=== PATIENT | male | born 1945 | race Caucasian/White ===

== ENCOUNTER → 2023-06-10 12:02 | Outpatient (CLI) | payer MEDICARE, SELFPAY ==
[2023-06-10 14:27] LABS: Prostate Specific Antigen 3.03 ng/mL (0.10-4.00)
== END ==
LOC: LAB 12:04
PROVIDERS: PCP Family Medicine; Referring Provider Family Medicine; Visit Provider Family Medicine
DX: R35.1 Nocturia (principal)
CPT/HCPCS: 36415; 84153

== ENCOUNTER 2023-07-18 09:53 | Emergency (ER) | payer MEDICARE, SELFPAY ==
[2023-07-18] VITALS (7 sets, daily range): BP systolic 134–177; BP diastolic 63–84; PULSE 63–82; RESP 14–17; TEMP 36.6; O2SAT 94–98; BMI 28.8
--- NOTE | 2023-07-18 10:02 | DI.RAD.S_ITS ---
PROCEDURE: XR CHEST 1V INDICATIONS: SOB TECHNIQUE: One view of the chest was acquired. COMPARISON: None. FINDINGS: Surgical changes and devices: None. Lungs and pleura: Lungs are clear. No pleural effusions or pneumothorax. Mediastinum: Mediastinal contours appear normal. Heart size is normal. There is marked elevation of right hemidiaphragm. Bones and chest wall: No suspicious bony lesions. Overlying soft tissues appear unremarkable. IMPRESSION: No acute cardiopulmonary abnormality is seen. Dictated by: Stephania Winters M.D. on 07/18/2023 at 11:16 Approved by: Stephania Winters M.D. on 07/18/2023 at 11:16
--- NOTE | 2023-07-18 10:03 | DI.US.S_ITS ---
PROCEDURE: US PERIPH VENOUS LOW EXTREM LT INDICATIONS: eval for DVT TECHNIQUE: Real-time imaging, as well as color and pulse Doppler interrogation, were performed of the lower extremity deep veins from the inguinal ligament to the popliteal fossa, with documentation of the visualized calf veins. COMPARISON: None. FINDINGS: The common femoral, femoral, popliteal, and the visualized calf veins are normally compressible, and free of intraluminal thrombus. Color and pulse Doppler demonstrate normal phasic intraluminal flow. There is normal augmentation response to distal compression maneuver. IMPRESSION: No findings of lower extremity deep venous thrombosis. Dictated by: Stephania Winters M.D. on 07/18/2023 at 11:03 Approved by: Stephania Winters M.D. on 07/18/2023 at 11:03
--- NOTE | 2023-07-18 10:06 | ED_ITS ---
HPI - General Adult General Chief complaint: Shortness of Breath/Dyspnea Stated complaint: blood clot in leg, SOB Time Seen by Provider: 07/18/23 09:56 Source: patient Mode of arrival: Ambulatory History of Present Illness HPI narrative: Patient is a 78-year-old male who is here for evaluation of swelling to his left lower extremity and concern for a DVT. He reports that he has had swelling to his left lower extremity for the past 5 days. No trauma. He has a known Dye's cyst. He denies chest pain. He states that he has been having some shortness of breath with exertion. 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 He has not on any anticoagulation. No abdominal pain. Related Data Home Medications Medication Instructions Recorded Confirmed amlodipine 10 mg tablet 10 mg PO DAILY 06/08/23 07/17/23 losartan 100 mg tablet 100 mg PO DAILY 06/08/23 07/17/23 naproxen sodium 220 mg capsule 220 mg PO BID PRN 06/08/23 07/17/23 propranolol 40 mg tablet 40 mg PO DAILY 06/08/23 07/17/23 Previous Rx's Medication Instructions Recorded tamsulosin 0.4 mg capsule 0.4 mg PO BEDTIME #30 caps 06/22/23 tamsulosin 0.4 mg capsule 0.8 mg (2 x 0.4 mg) PO BEDTIME #60 07/17/23 caps furosemide 20 mg tablet (Lasix) 20 mg PO DAILY #3 tabs 07/18/23 Allergies Allergy/AdvReac Type Severity Reaction Status Date / Time No Known Drug Allergies Allergy Verified 07/18/23 10:00 Review of Systems Review of Systems Narrative: See HPI Patient History Medical History BPH (benign prostatic hyperplasia) Vision disorder Hearing loss Kidney stones Skin cancer Rosacea Plantar warts Allergies TIA (transient ischemic attack) Stroke Mumps Measles Chicken pox Osteoarthritis of right hip Aortic regurgitation Hypertension Nocturia Erectile dysfunction Neurocognitive disorder Hx of adenomatous polyp of colon Surgical History (Updated 07/01/23 @ 20:30 by Amita Min) Anesthesia History of tonsillectomy History of cholecystectomy Family History (Updated 07/01/23 @ 20:31 by Amita Min) Father Mental health problem Mother Cancer Social History Smoking Status: Never smoker Smoking Status: Never smoker alcohol intake frequency: holidays/special occasions only Substance Use Type: does not use Exam Initial Vital Signs Initial Vital Signs: Vital Signs Temperature 97.8 F 07/18/23 09:54 Pulse Rate 82 07/18/23 09:54 Respiratory Rate 14 07/18/23 09:54 Blood Pressure 176/84 H 07/18/23 09:54 Pulse Oximetry 97 07/18/23 09:54 Oxygen Delivery Method Room Air 07/18/23 09:54 Const General: cooperative, comfortable and No ill appearing HENCT Head: normal to inspection and normocephalic Resp Effort & Inspection: normal respiratory effort Auscultation: clear to auscultation bilaterally Cardio Rate: regular rate Rhythm: regular rhythm GI Inspection: normal to inspection and non-distended Skin General: no rashes or lesions noted Neuro General: patient alert, patient awake and moves all extremities Extrem Other: Circumferential edema left lower extremity from his toes to his hip. Scores Wells' Criteria for DVT Active Cancer (Treatment within 6 months): No Bedridden recently >3 days or major surgery within 4 weeks: No Calf Swelling >3cm compared to other leg: Yes Collateral (nonvericose) superficial veins present: No Entire leg swollen: Yes Localized tenderness along the deep vein system: Yes Pitting edema, confined to symtomatic leg: Yes Paralysis, paresis, or recent plaster immobilization of ext: No Previously documented DVT: No Alternative dx to DVT as likely or more likely: No Wells' criteria for DVT: 4 Course Orders Ordered: ED Orders 07/18/23 09:57 EKG-12 Lead Stat 07/18/23 10:02 XR chest 1V Stat 07/18/23 10:03 US periph venous low extrem lt Stat 07/18/23 10:09 Complete Blood Count AUTO DIFF Stat Comprehensive Metabolic Panel Stat Lipase Stat NT-proBNP (BNP-Adult 18+) Stat PTT Partial Thromboplastin Wilbur Stat Procalcitonin Stat Prothrombin Time INR Stat Troponin & CK Cardiac Panel Stat Vital Signs Vital signs: Vital Signs - 8 hr 07/18/23 09:54 07/18/23 09:58 07/18/23 09:58 Temperature 97.8 F Pulse Rate 82 81 Respiratory Rate 14 Blood Pressure 176/84 H 176/84 H Pulse Oximetry 97 98 Oxygen Delivery Method Room Air 07/18/23 10:08 07/18/23 10:08 07/18/23 10:30 Temperature Pulse Rate 73 65 Respiratory Rate 17 Blood Pressure 151/72 H Pulse Oximetry 96 95 Oxygen Delivery Method 07/18/23 10:56 07/18/23 10:56 07/18/23 11:00 Temperature Pulse Rate 66 Respiratory Rate 15 Blood Pressure 177/71 H 136/63 Pulse Oximetry 97 Oxygen Delivery Method 07/18/23 11:00 07/18/23 11:30 07/18/23 11:30 Temperature Pulse Rate 66 63 Respiratory Rate 17 15 Blood Pressure 134/64 Pulse Oximetry 95 94 Oxygen Delivery Method Medical Decision Making Medical Records Medical records reviewed: Yes I reviewed the patient's medical records. Lab Data Lab results reviewed: Yes I reviewed the patient's lab results. 07/18/23 10:09 07/18/23 10:09 Labs: Lab Results 07/18/23 Range/Units 10:09 WBC 6.9 (4.5-11.0) X10^3/uL RBC 4.88 (4.5-5.9) X10^6/uL Hgb 14.9 (13.5-17.5) g/dL Hct 43.1 (41-53) % MCV 88.3 (80-100) fL MCH 30.5 (26-34) PG MCHC 34.6 (30-36) % RDW 13.4 (11.6-14.8) % Plt Count 229 (150-400) X10^3/uL Neut % (Auto) 67.8 (50-75) % Lymph % (Auto) 21.2 L (25-40) % [place] % (Auto) 8.5 (3-14) % Eos % (Auto) 1.8 L (2-4) % Baso % (Auto) 0.7 (0-2) % Neut # (Auto) 4700 (1839-8462) /uL Lymph # (Auto) 1500 (4316-1366) /uL [place] # (Auto) 600 (0-900) /uL Eos # (Auto) 100 (0-450) /uL Baso # (Auto) 100 (0-100) /uL PT 11.6 (9.4-12.5) SECONDS INR 1.0 (0.9-1.3) APTT 36 (25.1-36.5) SECONDS Sodium 138 (137-145) mmol/L Potassium 4.1 (3.4-5.1) mmol/L Chloride 110 H (98-107) mmol/L Carbon Dioxide 20 L (22-32) mmol/L BUN 19 (9-20) mg/dL Creatinine 1.01 (0.66-1.25) mg/dL Estimated GFR > 60 (>60) mL/min BUN/Creatinine Ratio 18.8 (6-22) Glucose 107 (80-110) mg/dL Calcium 8.8 (8.4-10.2) mg/dL Total Bilirubin 0.8 (0.2-1.3) mg/dL AST 22 (17-59) IU/L ALT 16 (<50) IU/L Alkaline Phosphatase 71 (38-126) U/L Total Creatine Kinase 54 L (55-170) U/L Troponin I < 0.012 (0.01-0.034) ng/mL NT-Pro-B Natriuret Pep 91 (<450) pg/mL Total Protein 6.9 (6.3-8.2) g/dL Albumin 4.4 (3.5-5.0) g/dL Globulin 2.5 (1.7-4.1) g/dL Albumin/Globulin Ratio 1.8 (1.0-2.8) Lipase 141 (23-300) U/L Procalcitonin 0.04 (<0.5) ng/mL Imaging Data US - DVT: Radiologist's Impression: PROCEDURE: US PERIPH VENOUS LOW EXTREM LT INDICATIONS: eval for DVT TECHNIQUE: Real-time imaging, as well as color and pulse Doppler interrogation, were performed of the lower extremity deep veins from the inguinal ligament to the popliteal fossa, with documentation of the visualized calf veins. COMPARISON: None. FINDINGS: The common femoral, femoral, popliteal, and the visualized calf veins are normally compressible, and free of intraluminal thrombus. Color and pulse Doppler demonstrate normal phasic intraluminal flow. There is normal augmentation response to distal compression maneuver. IMPRESSION: No findings of lower extremity deep venous thrombosis. Chest x-ray: Radiologist's Impression: PROCEDURE: XR CHEST 1V INDICATIONS: SOB TECHNIQUE: One view of the chest was acquired. COMPARISON: None. FINDINGS: Surgical changes and devices: None. Lungs and pleura: Lungs are clear. No pleural effusions or pneumothorax. Mediastinum: Mediastinal contours appear normal. Heart size is normal. There is marked elevation of right hemidiaphragm. Bones and chest wall: No suspicious bony lesions. Overlying soft tissues appear unremarkable. IMPRESSION: No acute cardiopulmonary abnormality is seen. MDM Narrative Medical decision making narrative: Patient is not clinically in heart failure. His lower extremity does not have any signs of a cellulitis. Negative for DVT. Troponin is negative. BNP is negative. Chest x-ray shows no signs of pneumonia. He has a known history of a Dye's cyst. Plan will be to discharge patient home. Will put him on Lasix for the next couple days. He will also try to keep his leg elevated and use an elastic bandage. He was advised contact his primary doctor for follow-up. Has a follow-up with Cardiology in 2 weeks from now. He may need further evaluation to include an echocardiogram. He was given strict return precautions. He expressed understanding and agreement with plan. Discharge Plan Departure Patient Disposition: Home Clinical Impression: Edema of left lower leg Instructions: DI for Peripheral Edema-Unilateral Activity Restrictions/Additional Instructions: Take the Lasix as directed. Continue to take the rest of your medications as directed. I do recommend you contact your primary doctor for follow-up. Try to keep your left leg elevated. You can rapid with an elastic bandage what you can take off at night and also to bathe. Return to the emergency department for fevers, worsening shortness of breath, redness to your lower extremity or any other worsening symptoms. Prescriptions: New furosemide [Lasix] 20 mg tablet 20 mg PO DAILY Qty: 3 0RF No Action tamsulosin 0.4 mg capsule 0.8 mg PO BEDTIME Qty: 60 1RF losartan 100 mg tablet 100 mg PO DAILY amlodipine 10 mg tablet 10 mg PO DAILY propranolol 40 mg tablet 40 mg PO DAILY naproxen sodium 220 mg capsule 220 mg PO BID PRN tamsulosin 0.4 mg capsule 0.4 mg PO BEDTIME Qty: 30 0RF Referrals: Corinne Quezada MD [Primary Care Provider] - Stand Alone Forms: Patient Portal/API
--- NOTE | 2023-07-18 10:15 | PC.NURSE ---
Pt came to the ED today because of LLE pain and swelling. Pt also reports that he has been having some SOB with exertion. Pt is confused at baseline. Hx of hemorrhagic stroke 10 years ago and is not on thinners. VS WNL.
[2023-07-18 10:19] LABS: Add Manual Diff / Slide Review NO; Basophils Absolute Auto 100 /uL (0-100); Basophils Percent Auto 0.7 % (0-2); Eosinophils Absolute Auto 100 /uL (0-450); Eosinophils Percent Auto 1.8 % (2-4); Hematocrit 43.1 % (41-53); Hemoglobin 14.9 g/dL (13.5-17.5); Lymphocytes Absolute Auto 1500 /uL (1100-4500); Lymphocytes Percent Auto 21.2 % (25-40); Mean Corpuscular HGB Conc 34.6 % (30-36); Mean Corpuscular Hemoglobin 30.5 PG (26-34); Mean Corpuscular Volume 88.3 fL (80-100); Monocytes Absolute Auto 600 /uL (0-900); Monocytes Percent Auto 8.5 % (3-14); Neutrophils Absolute Auto 4700 /uL (1500-7000); Neutrophils Percent Auto 67.8 % (50-75); Platelet Count 229 X10^3/uL (150-400); Red Blood Cell Count 4.88 X10^6/uL (4.5-5.9); Red Cell Distribution Width 13.4 % (11.6-14.8); White Blood Cell Count 6.9 X10^3/uL (4.5-11.0)
[2023-07-18 10:27] LABS: Prothrombin Time 11.6 SECONDS (9.4-12.5)
[2023-07-18 10:30] LABS: PTT Partial Thromboplastin Tim 36 SECONDS (25.1-36.5)
[2023-07-18 10:40] LABS: Creatine Kinase 54 U/L (55-170); Lipase 141 U/L (23-300)
[2023-07-18 10:41] LABS: Alanine Aminotransferase 16 IU/L (<50); Albumin 4.4 g/dL (3.5-5.0); Albumin Globulin Ratio 1.8 (1.0-2.8); Alkaline Phosphatase 71 U/L (38-126); Aspartate Aminotransferase 22 IU/L (17-59); BUN Creatinine Ratio 18.8 (6-22); Bilirubin Total 0.8 mg/dL (0.2-1.3); Blood Urea Nitrogen 19 mg/dL (9-20); Calcium 8.8 mg/dL (8.4-10.2); Carbon Dioxide 20 mmol/L (22-32); Chloride 110 mmol/L (98-107); Estimated Glomerular Filt Rate > 60 mL/min (>60); Globulin 2.5 g/dL (1.7-4.1); Glucose 107 mg/dL (80-110); HEMOLYSIS < 15 (0-50); Potassium 4.1 mmol/L (3.4-5.1); Sodium 138 mmol/L (137-145); Total Protein 6.9 g/dL (6.3-8.2)
[2023-07-18 10:53] LABS: NT-proBNP (BNP-Adult 18+) 91 pg/mL (<450); Troponin I < 0.012 ng/mL (0.01-0.034)
[2023-07-18 10:58] LABS: Procalcitonin 0.04 ng/mL (<0.5)
== END 2023-07-18 12:08 | disposition home or self-care (01) ==
PROVIDERS: Emergency Provider Emergency Medicine; PCP Family Medicine
DX: R60.0 Localized edema (principal)
CPT/HCPCS: 36415; 71045; 80053; 82550; 83690; 83880; 84145; 84484; 85025; 85610; 85730; 93971; 99284

== ENCOUNTER → 2023-07-27 13:35 | Outpatient (CLI) | payer MEDICARE, SELFPAY ==
--- NOTE | 2023-07-27 13:36 | DI.ECHO.S_ITS ---
[place] [facility] : : [address] : : [place] : : [id number] : : Phone: [phone] Echocardiogram Report + + :Name: BABITA PROCTOR Study Date: 07/27/2023 Height: 68.5 in: :[facility] : Weight: 190 lb : : Gender: Male BSA: 2.0 m2 : :: 1945 Age: 78 yrs BP: 147/82 mmHg: :Reason For Study: LLE EDEMA : :Ordering Physician: : :LESLYE ALVARADO Performed By: Francesca Espinoza : :Referring: KAN NICHOLS : + + Interpretation Summary 1) Normal left ventricular thickness, size, wall motion, and systolic function (EF 60-65%). 2) Normal right ventricular size and function. 3) There is moderate aortic regurgitation. 4) No prior Echo available for comparison. Recommend repeat Echo in one year for serial monitoring, sooner if clinically indicated. Procedure: A two-dimensional transthoracic echocardiogram with color flow and Doppler was performed. The study quality was technically adequate. There is no prior echocardiogram noted for this patient. The patient was in sinus rhythm with heart rates between 62-76 bpm during the exam. Left Ventricle: The left ventricle is normal in size and wall thickness. The ejection fraction is estimated to be 60-65%. Left ventricular systolic function appears normal without focal wall motion abnormalities. Right Ventricle: The right ventricle is normal in size and function. Atria: The left atrial size is normal. Right atrial size is normal. There is no Doppler evidence for an interatrial shunt. Mitral Valve: There is mild mitral annular calcification. The mitral valve leaflets appear mildly thickened, but open well. There is trace mitral regurgitation. Aortic Valve: The aortic valve is trileaflet. The aortic valve opens well. There is no aortic valve stenosis. There is moderate aortic regurgitation. Tricuspid Valve: The tricuspid valve is normal in structure and function. There is mild tricuspid regurgitation. The right ventricular systolic pressure is estimated to be at least 26 mmHg based on an estimated right atrial pressure of 3 mm Hg. Pulmonic Valve: The pulmonic valve is not well seen, but is grossly normal. There is trace pulmonic regurgitation. Great Vessels: The aortic root is normal size. The dimensions of the ascending aorta are normal. The IVC is of normal diameter and collapses greater than 50% with a sniff. This suggests a low right atrial pressure of 3 mm Hg. Pericardium/ Pleura There is no pericardial effusion. There is no pleural effusion. MMode/2D Measurements & Calculations LVIDd: 5.4 cm LVOT diam: 2.3 cm LVIDs: 3.3 cm Ao root diam: 3.6 cm FS: 38.5 % asc Aorta Diam: 3.8 cm IVSd: 0.79 cm Ao Arch Diam (Prox Trans): 2.7 cm LVPWd: 0.98 cm LV crystal. diameter/BSA (cm/m^2): 2.7 LV sys. diameter/BSA (cm/m^2): 1.6 LA A2 area: 20.0 cm2 RA long axis: 5.5 cm LA A4 area: 12.2 cm2 RA area: 14.6 cm2 LA length (vol): 4.7 cm RA vol: 33.1 ml LA vol: 43.8 ml RA : 16.4 ml/m2 LA vol index: 21.8 ml/m2 IVC diam: 1.1 cm RVD1 (basal): 3.3 cm RVD2 (mid): 2.3 cm TAPSE: 2.2 cm Doppler Measurements & Calculations Ao V2 max: 142.5 cm/sec LVOT Max Darci: 120.5 cm/sec Ao V2 mean: 96.9 cm/sec LV V1 max P.8 mmHg Ao max P.1 mmHg LV V1 VTI: 24.7 cm Ao mean P.2 mmHg RAYMOND(I,D): 3.3 cm2 Ao V2 VTI: 31.4 cm RAYMOND(V,D): 3.5 cm2 sev ratio: 0.79 RAYMOND indexed to BSA (cm^2/m^2): 1.6 AI P1/2t: 361.5 msec AI dec slope: 365.0 cm/sec2 MV E max darci: 77.7 cm/sec TR max darci: 237.2 cm/sec MV A max darci: 49.8 cm/sec TR max P.5 mmHg MV E/A: 1.6 PA pr(Accel): 32.8 mmHg Med Peak E' Darci: 6.8 cm/sec E/E' med: 11.4 Lat Peak E' Darci: 7.1 cm/sec E/E' lat: 10.9 E/e' average: 11.1 MV dec time: 0.26 sec SV(LVOT): 103.3 ml Reading Physician:03:43 PM
== END ==
PROVIDERS: PCP Family Medicine; Referring Provider Family Medicine; Visit Provider Family Medicine
DX: R60.0 Localized edema (principal); I08.3 Combined rheumatic disorders of mitral, aortic and tricuspid valves
CPT/HCPCS: 93306

== ENCOUNTER 2023-08-03 13:31 | Outpatient (RCR) | payer MEDICARE, SELFPAY ==
--- NOTE | 2023-08-03 16:00 | PT.OIE ---
Current Diagnoses Other chronic pain (08/03/23) Bilateral primary osteoarthritis of hip (08/03/23) Pain in right knee (08/03/23) Pain in left knee (08/03/23) Past Medical History (Last Reviewed 07/18/23 @ 10:07 by Yasmany Yang DO) Allergies Aortic regurgitation BPH (benign prostatic hyperplasia) Chicken pox Erectile dysfunction Hearing loss Hx of adenomatous polyp of colon Hypertension Kidney stones Measles Mumps Neurocognitive disorder Nocturia Osteoarthritis of right hip Plantar warts Rosacea Skin cancer Stroke TIA (transient ischemic attack) Vision disorder Past Surgical History (Last Updated 07/01/23 @ 20:30 by Amita Min) Anesthesia History of cholecystectomy History of tonsillectomy Visit Care Team Role Provider Type Corinne Quezada MD Attending Provider Physician Family Provider Primary Care Provider Referring Provider Specialty: Family Practice CLINICAL ENGINEERING MANAGER Address: [address] [place] [address], [facility] Fax: Email: [email or web address] Physical Therapy Initial Evaluation PT-OP-A Visit Information Start: 08/03/23 13:48 Freq: Status: Active Protocol: Document 08/03/23 13:48 NM (Rec: 08/03/23 17:03 NM [id number]) Out-Patient Physical Therapy Visit Information Visit Information Visit Type Initial Evaluation Visit Note KX after 19 visits Visit Start Time 13:48 Visit Stop Time 14:43 Visit Number 1 Evaluation Information Evaluation Date 08/03/23 Precautions Precautions hx stroke, blood pressure take vitals PT-OP-B Current Condition Start: 08/03/23 13:48 Freq: Status: Active Protocol: Document 08/03/23 13:48 NM (Rec: 08/03/23 17:03 NM [id number]) Current Condition History of Current Condition Onset Date 2-3 months Current Complaints gait, pain, weak History of Current Condition Pt presents with R hip pain, R knee pain, L knee pain. Pain began 2-3 months ago, but he is unsure of the onset. Pt reports that his pain is worse with movement He has gait abnormalities. States that last , his L ankle to knee is swollen and he states he had a pouch behind the knee ; states no ankle pain prior to this. He last visited Dr. Sun. He recently began wearing a diaper because he is leaking urine when standing/ walking. Denies back pain, numbness/tingling, saddle anesthesia, states he has gone poop in his diaper. He also reports that he is no longer having erections since about age 74. He has an ultrasound of his L leg, which was clear. His coronary clinical specialist is recommending a CT of pelvis/ internal organ. Pt reports difficulty with getting in/out of chair (must use arms), get in/out of car, walking, putting socks on (lies on back ) and shoes (wear sandals). He lives with his . He had a TIA and a stroke 10 years ago , denies any detention deficits but thinks his R side was affected. Pt is a poor historian and is unsure of exact dates or symptoms per his own admission. Prior Treatments and Tests previous PT for stroke PT-OP-C Subjective Start: 08/03/23 13:48 Freq: Status: Active Protocol: Document 08/03/23 13:48 NM (Rec: 08/03/23 17:03 NM [id number]) OP-PT Subjective Patient Comments Patient Comments see hx above for pt report Patient Questionnaires Lower Extremity Functional Scale LEFS Score 63/80 OP-PT Pain Assessment Location knees Pain Location Details R medial knee (8), L (6) Scale Used Numeric (0 - 10) Description Aching,Sharp Pain Aggravating Factors Position,Standing,Walking Other Pain Aggravating Factors squat, transfers, elevation causes itching sensation (gone w/ dependence) Pain Alleviating Factors Rest Patient Stated Pain Goal R worse w/ WB R hip Pain Location Details posterior hip pain/near SIJ Intensity 8 Scale Used Numeric (0 - 10) Description Sharp Frequency Frequent Radiating Location to low back Pain Aggravating Factors Standing,Walking,Bending Other Pain Aggravating Factors tilts (rocking in chair w/ fwd flex) Pain Alleviating Factors Rest PT-OP-E Functional Tests Start: 08/03/23 13:48 Freq: Status: Active Protocol: Document 08/03/23 13:48 NM (Rec: 08/03/23 17:03 NM [id number]) Functional Tests Five Times Sit to Stand Test Score 13.3 sec Comments R post hip w/ transition PT-OP-F Manual Assessment Start: 08/03/23 13:48 Freq: Status: Active Protocol: Document 08/03/23 13:48 NM (Rec: 08/03/23 17:03 NM [id number]) Manual Assessments Soft Tissue Assessment Soft Tissue Mobility Assessment Decreased heel cord and hamstring length. Possible chow's cyst behind L knee. R medial knee has increased swelling near pes anserine. Increased LLE swelling from ankle to above knee. Joint Mobility Assessment Joint Mobility Assessment Hypomobility with P-A springing of lumbar spine and B SIJ/PSIS. No ligamentous instability of B knees. PT-OP-G Mobility & Gait Start: 08/03/23 13:48 Freq: Status: Active Protocol: Document 08/03/23 13:48 NM (Rec: 08/03/23 17:03 NM [id number]) OP Gait Assessment Gait Gait Assistance Required: Independent Distance (Feet) 200 Assistive Devices Assistive Device None Gait Deviations General Gait Pattern Antalgic,Decreased Feet Clearance,Flexed Trunk,Step-to Gait,Wide Based Gait Factors Limiting Gait Function Factors Limiting Gait Function Decreased Activity Tolerance, Decreased Strength,Limited Range of Motion,Pain PT-OP-J Posture/Palpation/Skin Start: 08/03/23 13:48 Freq: Status: Active Protocol: Document 08/03/23 13:48 NM (Rec: 08/03/23 17:03 NM [id number]) Posture Evaluation Position Standing Head/C-Spine Posture Forward Head T-Spine Posture Increased Kyphosis L-Spine Posture Increased Lordosis Arm Posture (L) Internally Rotated,(R) Internally Rotated Pelvis Posture Anteriorly Tilted Hip Posture (L) Externally Rotated,(R) Externally Rotated Knee Posture (L) Genu Valgus,(R) Genu Valgus Palpation Assessment Location lumbar spine Palpation Details Tenderness to palpation and with P-A testing of B SIJ (R>L ). No tenderness along midline of spine Hip Palpation Details Minimal tenderness over posterior glute lateral to R SIJ, mild tenderness near greater trochanter Knee Palpation Details Tenderness along R medial knee , increased bony prominence at medial tibial plateau and near pes anserine. Possible bursa over pes anserine area, tender Left knee is swollen, along with L leg. Denies tenderness to palpation along knee PT-OP-K Range of Motion Start: 08/03/23 13:48 Freq: Status: Active Protocol: Document 08/03/23 13:48 NM (Rec: 08/03/23 17:03 NM [id number]) Lumbar Spine Range of Motion Lumbar Spine Active Percentage Flexion 60 Extension 75 Lateral Flexion Left 100 Lateral Flexion Right 100 Comments R LF- back/post hip Hip Goniometric Range of Motion Hip Right Flexion w/Knee Flexed 108 Internal Rotation 28 External Rotation 30 Comments Reports pulling at post hip with IR; 140 deg HS length Left Flexion w/Knee Flexed 110 Internal Rotation 20 External Rotation 20 Comments no pain with flexion or IR/ER in supine or sitting; HS 140 deg Knee Goniometric Range of Motion Knee Right Flexion Active (degrees) 125 Extension Active (degrees) 4 Extension Passive (degrees) 3 Comments Reports tightness but no pain Left Flexion Active (degrees) 130 Extension Active (degrees) 0 Comments Reports tightness but no pain PT-OP-L Special Tests Start: 08/03/23 13:48 Freq: Status: Active Protocol: Document 08/03/23 13:48 NM (Rec: 08/03/23 17:03 NM [id number]) Special Tests Lumbar Spine Special Tests Laslett cluster Test Results + Comments reproduces hip pain Straight Leg Raise Test Results - Nguyen/quadrant Test Results - PT-OP-M Strength Start: 08/03/23 13:48 Freq: Status: Active Protocol: Document 08/03/23 13:48 NM (Rec: 08/03/23 17:03 NM [id number]) Trunk Strength Trunk Manual Muscle Testing Flexion 3 Fair Extension 3 Fair Rotation Left 3 Fair Rotation Right 3 Fair Lateral Flexion Left 3 Fair Lateral Flexion Right 3 Fair Comments Minimal pain with resisted trunk rotation B and lateral flexion to L (on R side) Hip Strength Hip Manual Muscle Testing Right Flexion (L2) 4- Good- Extension (S1) 3+ Fair+ Abduction 3+ Fair+ Adduction 4- Good- External Rotation 4 Good Internal Rotation 4 Good Left Flexion (L2) 4- Good- Extension (S1) 3+ Fair+ Abduction 3+ Fair+ Adduction 4- Good- External Rotation 4 Good Internal Rotation 4 Good Knee Strength Knee Manual Muscle Testing Right Flexion (S2) 4 Good Extension (L3) 4 Good Left Flexion (S2) 4- Good- Extension (L3) 4- Good- Ankle/Foot Strength Ankle and Foot Manual Muscle Testing Right Dorsiflexion (L4) 4 Good Plantarflexion (S1) 3 Fair Left Dorsiflexion (L4) 4 Good Plantarflexion (S1) 3 Fair PT-OP-T Assessment and Plan Start: 08/03/23 13:48 Freq: Status: Active Protocol: Document 08/03/23 13:48 NM (Rec: 08/03/23 17:03 NM [id number]) Physical Therapy Assessment Rehab Potential Rehabilitation Potential Fair Evaluation Complexity Number of Personal Factors/Comorbidities 3 or More Number of Body Systems Impaired 4 or More Clinical Presentation at Evaluation Evolving Impairments Impairments Activity Tolerance,Balance, Edema,Functional Activities, Functional Mobility,Gait, Integument,Pain,Posture,ROM, Sensation,Soft Tissue Mobility ,Strength,Tone Assessment Summary Assessment Pt presents with R hip and B knee pain. Pt's right hip pain is located near his R SIJ. His hip pain radiates to his low back. He has impairments in gait, balance, strength, ROM, and ability to participate in ADLs. Pt also presents with swelling throughout his L lower extremity, worse with elevation. Pt cleared for DVT by vascular ultrasound on 07/17. Pt has full B hip ROM in sitting and supine, which does not provoke pain symptoms. He also has full bilateral knee flexion and extension ROM. Pt' s pain symptoms of his hip and knee are not reproduced by resisted muscle testing. Pt's hip pain is reproduced by the Laslett cluster for SIJ, particularly with joint compression. Pt has decreased bilateral hip strength in flexion, abduction, and extension. Full lumbar spine exam performed to rule out lumbar spine as pt has red flag symptoms including loss of bowel and bladder control. He is currently wearing a diaper 26/09. Pt denies any saddle anesthesia, B numbness or tingling. Pt unable to provide exact timeline for symptoms. No increase in symptoms with ROM, Nguyen/ quadrant, or straight leg raise test. PT educated pt on exam findings and recommended pt go to ED to assess low back and follow up with PCP. Pt declined ED and plans to follow up with PCP. PT reached out to referring provider regarding recommendation for MRI of lumbar spine and regarding swelling in his left lower extremity. Pt is not appropriate for PT at this time and will be referred back to PCP. Physical Therapy Plan Discharge Physical Therapy Discharge Comments Not appropriate for PT at this time due to lumbar spine red flags Next Visit Focus/Plan Next Visit Plan discharge from PT services
--- NOTE | 2023-08-03 16:01 | PT.OPPOC ---
Physical, Occupational & Speech Therapy At [facility] Current Diagnoses Other chronic pain (08/03/23) Bilateral primary osteoarthritis of hip (08/03/23) Pain in right knee (08/03/23) Pain in left knee (08/03/23) Visit Care Team Role Provider Type Corinne Quezada MD Attending Provider Physician Family Provider Primary Care Provider Referring Provider Specialty: Family Practice [employer] Address: [address] [place] [address], [id number] Fax: Email: [email or web address] Plan Of Care PT-OP-T Assessment and Plan Start: 08/03/23 13:48 Freq: Status: Active Protocol: Document 08/03/23 13:48 NM (Rec: 08/03/23 17:03 NM [id number]) Physical Therapy Assessment Rehab Potential Rehabilitation Potential Fair Evaluation Complexity Number of Personal Factors/Comorbidities 3 or More Number of Body Systems Impaired 4 or More Clinical Presentation at Evaluation Evolving Impairments Impairments Activity Tolerance,Balance, Edema,Functional Activities, Functional Mobility,Gait, Integument,Pain,Posture,ROM, Sensation,Soft Tissue Mobility ,Strength,Tone Assessment Summary Assessment Pt presents with R hip and B knee pain. Pt's right hip pain is located near his R SIJ. His hip pain radiates to his low back. He has impairments in gait, balance, strength, ROM, and ability to participate in ADLs. Pt also presents with swelling throughout his L lower extremity, worse with elevation. Pt cleared for DVT by vascular ultrasound on 07/17. Pt has full B hip ROM in sitting and supine, which does not provoke pain symptoms. He also has full bilateral knee flexion and extension ROM. Pt' s pain symptoms of his hip and knee are not reproduced by resisted muscle testing. Pt's hip pain is reproduced by the Laslett cluster for SIJ, particularly with joint compression. Pt has decreased bilateral hip strength in flexion, abduction, and extension. Full lumbar spine exam performed to rule out lumbar spine as pt has red flag symptoms including loss of bowel and bladder control. He is currently wearing a diaper 26/09. Pt denies any saddle anesthesia, B numbness or tingling. Pt unable to provide exact timeline for symptoms. No increase in symptoms with ROM, Nguyen/ quadrant, or straight leg raise test. PT educated pt on exam findings and recommended pt go to ED to assess low back and follow up with PCP. Pt declined ED and plans to follow up with PCP. PT reached out to referring provider regarding recommendation for MRI of lumbar spine and regarding swelling in his left lower extremity. Pt is not appropriate for PT at this time and will be referred back to PCP. Physical Therapy Plan Discharge Physical Therapy Discharge Comments Not appropriate for PT at this time due to lumbar spine red flags Next Visit Focus/Plan Next Visit Plan discharge from PT services Electronically Signed by: Haylee Brunson, PT 08/07/23 1013 If you are in agreement with this Plan of Care, please return a signed and dated copy. I have reviewed this Plan of Care and certify that the skilled therapy services above are required to meet the patient?s needs. Physician Signature Date Printed Name and Credentials Clinical Instructor Signature Printed Name and Credentials
--- NOTE | 2023-08-03 17:00 | PT-OP ANOTE ---
PT reached out to Dr. Quezada's office regarding findings in Pt's exam and left message with nurse with callback number. Recommended lumbar spine imaging due to bowel and bladder incontinence. Also mentioned still has swelling in L leg from ankle to knee. Asked for Dr. Quezada to either clear pt to begin PT for knee/hip if lumbar spine cleared before return to PT.
--- NOTE | 2023-08-04 15:44 | PT-OP ANOTE ---
PT received call from PCP's office this morning about pt, and responded to message to call nurse back twice ([phone]) but has not been able to get through or leave a message.
--- NOTE | 2023-08-07 09:58 | PT-OP ANOTE ---
Spoke with Dr. Quezada this am about pt, recommending MRI of lumbar spine. Plan to discharge pt from PT until lumbar spine cleared. Pt will need new referral for PT if lumbar spine cleared
--- NOTE | 2023-08-08 08:51 | PT-OP ANOTE ---
PT called and spoke to pt and his recommending that they call Dr. Quezada, informing pt that PT visits will be canceled and they need to follow up with her for further assessment. Informed pt and that pt is not appropriate for PT at this time until medically cleared. Pt and verbalize agreement.
== END 2023-08-07 14:38 | disposition home or self-care (01) ==
LOC: PHYS 13:31
PROVIDERS: Family Provider Family Medicine; PCP Family Medicine; Referring Provider Family Medicine; Visit Provider Family Medicine
DX: M16.0 Bilateral primary osteoarthritis of hip (principal); M25.561 Pain in right knee; M25.562 Pain in left knee; G89.29 Other chronic pain
CPT/HCPCS: 97163

== ENCOUNTER → 2023-08-09 12:01 | Outpatient (CLI) | payer MEDICARE, SELFPAY ==
--- NOTE | 2023-08-09 12:42 | DI.CT.S_ITS ---
PROCEDURE: CT ABDOMEN PELVIS W CON INDICATIONS: Lymphedema, not elsewhere classified TECHNIQUE: After the administration of intravenous contrast, axial sections acquired from the lung bases to the pubic symphysis. Coronal and sagittal reformats were performed. For radiation dose reduction, the following was used: automated exposure control, adjustment of mA and/or kV according to patient size. COMPARISON: None. FINDINGS: Image quality: Diagnostic. Lower Chest: Pulmonary nodule in the right middle lobe measuring 0.3 cm, (5/8). Bibasilar atelectasis. Asymmetric elevation of the right hemidiaphragm. Moderate coronary artery calcifications. ABDOMEN: Liver: No solid mass. Probable hepatic steatosis. Gallbladder: Absent. Biliary ducts: No biliary dilation. Pancreas: No ductal dilation. Small cyst in the head of the pancreas measuring 1.4 x 0.8 cm, (2/37). Spleen: Size is within normal limits. Adrenal Glands: No adrenal nodules. Kidneys and Ureters: No hydronephrosis. No solid mass. No complex renal cystic lesion which requires follow up. Stomach and Bowel: Normal colonic caliber, without significant wall thickening. Normal appendix. Peritoneum: No abnormal intraperitoneal fluid. No free air. Ventral Wall: No significant ventral hernia. Abdominal Nodes: No retroperitoneal or mesenteric adenopathy by size criteria. Vessels: Aorta and inferior vena cava are normal in size. PELVIS: Pelvic Organs: Unremarkable. Bladder: No bladder wall thickening, accounting for underdistention. Pelvic Nodes: No enlarged lymph nodes. Miscellaneous: No inguinal hernias are seen. Bones: No aggressive osseous abnormality. Small sclerotic focus at left L1. Appearance of a bone island. IMPRESSION: 1. No mass or adenopathy. No free fluid. 2. Small cyst in the head of the pancreas measuring 1.4 cm. Recommend follow-up pancreas MRI or CT in 2 years. Dictated by: Kar Hernandez M.D. on 08/09/2023 at 15:47 Approved by: Kar Hernandez M.D. on 08/09/2023 at 16:10
== END ==
PROVIDERS: Family Provider Family Medicine; PCP Family Medicine; Referring Provider Internal Medicine Cardiovascular Disease; Visit Provider Internal Medicine Cardiovascular Disease
DX: K86.2 Cyst of pancreas (principal); I89.0 Lymphedema, not elsewhere classified; R91.1 Solitary pulmonary nodule; I25.10 Atherosclerotic heart disease of native coronary artery without angina pectoris; J98.11 Atelectasis; Z90.49 Acquired absence of other specified parts of digestive tract
CPT/HCPCS: 74177; Q9967

== ENCOUNTER → 2024-02-02 09:12 | Outpatient (CLI) | payer MEDICARE, SELFPAY ==
[2024-02-02 10:33] LABS: Add Manual Diff / Slide Review NO; Basophils Absolute Auto 100 /uL (0-100); Basophils Percent Auto 0.9 % (0-2); Eosinophils Absolute Auto 100 /uL (0-450); Eosinophils Percent Auto 1.4 % (2-4); Hematocrit 45.7 % (41-53); Hemoglobin 15.8 g/dL (13.5-17.5); Lymphocytes Absolute Auto 1500 /uL (1100-4500); Lymphocytes Percent Auto 22.4 % (25-40); Mean Corpuscular HGB Conc 34.5 % (30-36); Mean Corpuscular Hemoglobin 30.6 PG (26-34); Mean Corpuscular Volume 88.8 fL (80-100); Monocytes Absolute Auto 500 /uL (0-900); Monocytes Percent Auto 8.2 % (3-14); Neutrophils Absolute Auto 4400 /uL (1500-7000); Neutrophils Percent Auto 67.1 % (50-75); Platelet Count 258 X10^3/uL (150-400); Red Blood Cell Count 5.14 X10^6/uL (4.5-5.9); Red Cell Distribution Width 13.4 % (11.6-14.8); White Blood Cell Count 6.5 X10^3/uL (4.5-11.0)
[2024-02-02 10:54] LABS: Alanine Aminotransferase 20 IU/L (<50); Albumin 4.6 g/dL (3.5-5.0); Alkaline Phosphatase 74 U/L (38-126); Aspartate Aminotransferase 25 IU/L (17-59); BUN Creatinine Ratio 14.2 (6-22); Bilirubin Total 1.4 mg/dL (0.2-1.3); Blood Urea Nitrogen 17 mg/dL (9-20); Calcium 9.8 mg/dL (8.4-10.2); Carbon Dioxide 26 mmol/L (22-32); Chloride 101 mmol/L (98-107); Cholesterol 192 mg/dL (140-199); Estimated Glomerular Filt Rate > 60 mL/min (>60); Globulin 2.3 g/dL (1.7-4.1); Glucose 93 mg/dL (80-110); HDL Cholesterol 45 mg/dL (40-60); HEMOLYSIS < 15 (0-50); LDL Cholesterol Calculated 118 mg/dL (<100); Potassium 4.7 mmol/L (3.4-5.1); Sodium 135 mmol/L (137-145); Total Protein 6.9 g/dL (6.3-8.2); Triglycerides 143 mg/dL (35-150)
[2024-02-02 11:22] LABS: TSH w/ Reflex to FT4 1.85 uIU/mL (0.47-4.68)
== END ==
LOC: LAB 09:14
PROVIDERS: Family Provider Family Medicine; PCP Family Medicine; Referring Provider Internal Medicine Cardiovascular Disease; Visit Provider Internal Medicine Cardiovascular Disease
DX: E78.5 Hyperlipidemia, unspecified (principal); I10 Essential (primary) hypertension
CPT/HCPCS: 36415; 80053; 80061; 84443; 85025